=== PATIENT | male | born 1980 | race African-American/Black ===

== ENCOUNTER 2019-08-19 07:33 | Emergency (ER) | payer SELFPAY ==
[2019-08-19] MEDS ORDERED: IV NORMAL SALINE 1,000ML 1,000 ML IV ONE ×2 (07:45→09:15)
[2019-08-19] MEDS ORDERED: ZIPRASIDONE IM 20 MG VIAL. IM ONE (08:00)
--- NOTE | 2019-08-19 08:06 | RAD ---
PORTABLE CHEST 1V History: Altered mental status Comparison: None. Findings: 2 AP views of the chest are submitted. Evaluation of the right apex is limited due to overlying apparatus. There are low lung volumes, poor inspiration. Pericardial cardiac silhouette is likely within normal limits given technique and degree of inspiration. There is no lobar consolidation, pneumothorax, significant pleural fluid. Impression: 1. There is suboptimal inspiration, no lobar consolidation identified. Electronically signed by: Steve Koenig MD (08/19/2019 8:03 AM) [facility]
[2019-08-19 08:09] LABS: BASO % 0 % (0-3); EOS % 0 % (0-3); HEMATOCRIT 45.3 % (39.0-53.0); HEMOGLOBIN 13.8 g/dL (13.0-17.5); LYMPH # 1.6 x10^3/uL (1.0-4.8); LYMPH % 8 % (24-48); MEAN CORPUSCULAR HEMOGLOBIN 27 pg (25-35); MEAN CORPUSCULAR HGB CONC 30 g/dL (31-37); MEAN CORPUSCULAR VOLUME 88 fL (79-100); MONO # 1.5 x10^3/uL (0.0-1.1); MONO % 7 % (0-9); NEUT # 16.9 x10^3uL (1.8-7.7); NEUT % 85 % (31-73); PLATELET COUNT 209 x10^3/uL (140-400); RED BLOOD COUNT 5.14 x10^6/uL (4.30-5.70); RED CELL DISTRIBUTION WIDTH 16.1 % (11.5-14.5)
--- NOTE | 2019-08-19 08:10 | PHYS DOC ---
Past History Past Medical History: No Pertinent History Additional Past Medical Histor: Limited due to altered mental status Past Surgical History: No Surgical History Additional Past Surgical Histo: Limited due to altered mental status Smoking: Cigarettes Social History Narrative: Limited due to altered mental status Adult General Chief Complaint Chief Complaint: ALTERED MENTAL STATUS HPI HPI 38-year-old male presents via EMS with report of being found unresponsive by family members. EMS reports patient was slumped over a chair and was not breathing. EMS placed a nasal trumpet and used bag valve mask to supply supplemental O2 and gave patient 4 mg of Narcan. Patient became more responsive. EMS reports unknown what patient might have taken. No obvious substances noted by EMS. History of present illness limited due to altered mental status. Review of Systems Review of Systems Limited due to altered mental status Current Medications Current Medications Current Medications Medications (Trade) Dose Ordered Sig/Caro Start Time Stop Time Status Last Admin Dose Admin Sodium Chloride 1,000 ml @ 1,000 mls/hr 1X ONCE 08/19/19 07:45 08/19/19 08:44 08/19/19 07:58 1,000 MLS/HR Ziprasidone (Geodon Im) 10 mg 1X ONCE 08/19/19 08:00 08/19/19 08:09 DC 08/19/19 07:59 10 MG Allergies Allergies Allergies Coded Allergies Type Severity Reaction Last Updated Verified Unable to Assess 08/19/19 No Physical Exam Physical Exam Constitutional: Well developed, well nourished, agitated HENT: Normocephalic, atraumatic, oropharynx dry, TMs clear, no epistaxis noted, dried vomitus noted on face Eyes: Pupils 3mm and sluggish, EOMI, conjunctiva normal, no discharge Neck: Normal range of motion, no tenderness, supple, no meningeal signs Cardiovascular: Heart rate normal, regular rhythm Lungs & Thorax: Bilateral breath sounds clear to auscultation, no wheezing Abdomen: Soft, no tenderness, no distention/guarding/rebound tenderness Skin: Cool, dry, no erythema, no rash, left AC puncture wound noted Extremities: No tenderness, ROM intact, no edema Neurologic: Patient opens eyes and "I need help" and "I need water", patient confused and not answering questions or following commands, GCS 11 (eye2, verbal 4, motor 5), normal motor function, normal sensory function, no focal deficits noted Psychologic: Affect agitated, judgement abnormal EKG EKG @0857 NSR at 81bpm, NO ST elevation, QRS 96ms, QT/QTc 372/433ms, hyperacute t waves noted Radiology/Procedures Radiology/Procedures PROCEDURE: PORTABLE CHEST 1V PORTABLE CHEST 1V History: Altered mental status Comparison: None. Findings: 2 AP views of the chest are submitted. Evaluation of the right apex is limited due to overlying apparatus. There are low lung volumes, poor inspiration. Pericardial cardiac silhouette is likely within normal limits given technique and degree of inspiration. There is no lobar consolidation, pneumothorax, significant pleural fluid. Impression: 1. There is suboptimal inspiration, no lobar consolidation identified. Electronically signed by: Steve Koenig MD (08/19/2019 8:03 AM) [facility] Course & Med Decision Making Course & Med Decision Making Pertinent Labs and Imaging studies reviewed. (See chart for details) Patient presents via EMS after being found unresponsive with poor respirations. Patient improved with Narcan and protecting own airway. Patient continues to be poor historian however. Patient moves all extremities. Patient cold to touch and decreased temperature. Warm blankets and bear hugger applied. Patient agitated and not following commands. Difficulty evaluating patient and obtaining appropriate imaging. Given risk of patient hurting himself or staff decision to give 10 mg Geodon IM. IVF hydration. EKG with hyperacute t waves. Labs obtained and posted to chart. Hyperkalemia with elevated creatinine noted. Hyperkalemia rechecked and continued. Calcium gluconate given along with insulin/dextrose. Continuous albuterol also provided. CPK >46792. Troponin slightly elevated likely secondary to rhabdomyolysis. Aspirin suppository given. UDS positive for cocaine and THC. Chest x-ray without acute process. CT head/cervical spine without acute process. Patient requiring admission for further evaluation and treatment. Discussed with Dr. Capellan (hospitalist) who is in agreement with admission at [facility]. Transfer forms signed. Discussed findings and plan with family, who acknowledge understanding and agreement. Dragon Disclaimer Dragon Disclaimer This electronic medical record was generated, in whole or in part, using a voice recognition dictation system. Departure Departure: Impression: Primary Impression: Altered mental status Additional Impressions: Hyperkalemia Renal failure Cocaine abuse Marijuana abuse Elevated troponin Rhabdomyolysis Lactic acidosis Disposition: 05 TRANSFER OTHER ([facility]) Admitting Physician: Naeem Capellan Condition: GUARDED Referrals: PCP,UNKNOWN (PCP) Critical Care Time Critical care time was 30 minutes which includes time at bedside, spent in discussion of patient's care with specialists and/or family members, with interpretation of laboratory and/or radiological studies and is exclusive of procedures. Problem Qualifiers Primary Impression: Altered mental status Altered mental status type: unspecified Qualified Codes: R41.82 - Altered mental status, unspecified Additional Impressions: Renal failure Renal failure chronicity: unspecified chronicity Qualified Codes: N19 - Unspecified kidney failure Rhabdomyolysis Rhabdomyolysis type: non-traumatic Qualified Codes: M62.82 - Rhabdomyolysis BELLA CARRILLO DO Aug 19, 2019 08:10
[2019-08-19 08:18] LABS: ALBUMIN 4.1 g/dL (3.4-5.0); ALBUMIN/GLOBULIN RATIO 1.2 (1.0-1.7); CALCIUM 8.4 mg/dL (8.5-10.1); CREATININE 3.8 mg/dL (0.7-1.3); GFR 18.1; MAGNESIUM 2.7 mg/dL (1.8-2.4); TOTAL BILIRUBIN 0.2 mg/dL (0.2-1.0); TOTAL PROTEIN 7.6 g/dL (6.4-8.2)
[2019-08-19 08:19] LABS: ACETAMIN < 2.0 mcg/mL (10-30); ETHANOL < 10 mg/dL (0-10); SALIC 3.9 mg/dL (2.8-20.0)
[2019-08-19 08:22] LABS: POTASSIUM 7.8 mmol/L (3.5-5.1)
[2019-08-19 08:43] LABS: BARBITURATES NEG (NEG); BENZODIAZEPINES NEG (NEG); CANNABINOIDS POS (NEG); COCAINE POS (NEG); METHADONE NEG (NEG); OPIATES NEG (NEG); PHENCYCLIDINE NEG (NEG)
[2019-08-19 08:45] LABS: AMPHETAMINE/METHAMPHETAMINE NEG (NEG)
[2019-08-19] MEDS ORDERED: ALBUTEROL SULFATE 2.5 MG/3 ML NEBU. CONT NEB ONE (09:00)
[2019-08-19 09:09] LABS: BILIRUBIN,URINE NEG (NEG); CLARITY,URINE CLEAR; COLOR,URINE YELLOW; GLUCOSE,URINE 500 mg/dL (NEG)
[2019-08-19 09:10] LABS: AMORPHOUS SEDIMENT,UR PRESENT /HPF; BACTERIA,URINE FEW /HPF (0-FEW); NITRITE,URINE NEG (NEG); RBC,URINE 0 /HPF (0-2); SPERM,URINE PRESENT /HPF; UROBILINOGEN,URINE 0.2 mg/dL (0.2 mg/dL); WBC,URINE RARE /HPF (0-4)
[2019-08-19 09:18] LABS: % BANDS 7 % (0-9); % BASOS 0 % (0-3); % EOS 0 % (0-5); % LYMPHS 5 % (24-48); % MONOS 4 % (0-10); % SEGS 84 % (35-66); PLT ESTIMATE DECREASED (ADEQUATE)
[2019-08-19 09:19] LABS: TOXIC VACUOLATION PRESENT
[2019-08-19] MEDS ORDERED: DEXTROSE 50% 25 GM / 50ML DISP.SYRIN. IV ONE (09:30)
[2019-08-19] MEDS ORDERED: CALCIUM GLUCONATE 1,000 MG/10 ML VIAL IV ONE (09:30)
[2019-08-19] MEDS ORDERED: INSULIN REGULAR 100 UNIT/ML 3ML VIAL. IV ONE (09:30)
--- NOTE | 2019-08-19 10:03 | RAD ---
CT head and cervical spine without contrast History: Altered mental status Technique: Noncontrast CT imaging was performed of the head and cervical spine. Multiplanar reconstruction images are submitted. Exposure: One or more of the following individualized dose reduction techniques were utilized for this examination: 1. Automated exposure control 2. Adjustment of the mA and/or kV according to patient size 3. Use of iterative reconstruction technique. Head CT Comparison: None Findings: There is some motion degradation. No acute extra-axial or parenchymal hemorrhage is identified. There is no significant intra-axial mass effect, midline shift, or extra-axial fluid collection. The otto-white differentiation of the major vascular territories is preserved. The ventricles, sulci, and cisterns are within normal limits in size and configuration. The mastoid air cells and the visualized paranasal sinuses are aerated. There is no significant focal calvarial abnormality. Impression: 1. No acute intracranial abnormality is identified. Cervical spine CT Comparison: None Findings: No acute cervical spine fracture is identified. Vertebral body stature and AP alignment are within normal limits. Atlanto-axial distance is within normal limits. There is appropriate alignment of lateral masses of C1 relative to C2. Occipital condylar-C1 relationship is maintained. There is mild reversal of the lordotic curvature centered near C4-5. There is jaoq-op-hsvgsmmp degenerative disc disease C5-6, to a somewhat lesser degree at C4-5 and C6-7. There is mild to moderate cervical levoscoliosis. There is degree of atlantoaxial rotatory subluxation although probably positional for exam. Impression: 1. No acute cervical spine fracture is identified. 2. There is multilevel degenerative disc disease greatest at C5-6. 3. There is cervical levoscoliosis. There is degree of atlantoaxial rotatory subluxation although may be positional for exam. Electronically signed by: Steve Koenig MD (08/19/2019 10:01 AM) [facility]
[2019-08-19 10:17] VITALS: BP 132/80
[2019-08-19] MEDS ORDERED: ASPIRIN RECTAL 300 MG SUPP. PR ONE (11:30)
--- NOTE | 2019-08-19 19:45 | EKG ---
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
== END 2019-08-19 12:07 | disposition short-term general hospital (02) ==
LOC: ER 07:33
DX: N19 Unspecified kidney failure (principal); R41.82 Altered mental status, unspecified; E87.5 Hyperkalemia; F14.10 Cocaine abuse, uncomplicated; F12.10 Cannabis abuse, uncomplicated; M62.82 Rhabdomyolysis; E87.2 Acidosis; R79.89 Other specified abnormal findings of blood chemistry; F17.210 Nicotine dependence, cigarettes, uncomplicated
CPT/HCPCS: 36415; 70450; 71045; 72125; 80053; 80307; 80329; 81001; 82140; 82553; 82947; 83605; 83735; 84132; 84484; 85007; 85025; 85610; 85730; 93005; 94644; 96361; 96372; 96374; 96375; 99291; G0480; J0610; J1815; J3486; J7613; 94640; 82003; 99285-25; J7030

== ENCOUNTER 2019-09-06 09:26 | Inpatient (IN) | payer SELFPAY ==
[~2019-09-06] VITALS: Ht 190.5 cm; Wt 104.3 kg
[2019-09-06 10:10] LABS: BASO # 0.1 x10^3/uL (0.0-0.2); BASO % 1 % (0-3); EOS # 0.2 x10^3/uL (0.0-0.7); EOS % 2 % (0-3); HEMATOCRIT 26.2 % (39.0-53.0); HEMOGLOBIN 8.7 g/dL (13.0-17.5); LYMPH # 2.5 x10^3/uL (1.0-4.8); LYMPH % 32 % (24-48); MEAN CORPUSCULAR HEMOGLOBIN 28 pg (25-35); MEAN CORPUSCULAR HGB CONC 33 g/dL (31-37); MEAN CORPUSCULAR VOLUME 84 fL (79-100); MONO # 0.6 x10^3/uL (0.0-1.1); MONO % 8 % (0-9); NEUT # 4.6 x10^3uL (1.8-7.7); NEUT % 58 % (31-73); PLATELET COUNT 331 x10^3/uL (140-400); RED BLOOD COUNT 3.12 x10^6/uL (4.30-5.70)
[2019-09-06 10:25] LABS: ALBUMIN 3.9 g/dL (3.4-5.0); CALCIUM 9.1 mg/dL (8.5-10.1); CREATININE 3.9 mg/dL (0.7-1.3); DIRECT BILIRUBIN 0.2 mg/dL (0.0-0.2); GFR 21.2; MAGNESIUM 1.6 mg/dL (1.8-2.4); PHOSPHORUS 2.8 mg/dL (2.6-4.7); POTASSIUM 4.1 mmol/L (3.5-5.1); TOTAL BILIRUBIN 0.6 mg/dL (0.2-1.0); TOTAL PROTEIN 7.3 g/dL (6.4-8.2)
[2019-09-06 10:30] LABS: BILIRUBIN,URINE NEG (NEG); CLARITY,URINE CLEAR; COLOR,URINE YELLOW; GLUCOSE,URINE NEG (NEG)
[2019-09-06 10:31] LABS: HYALINE CASTS, URINE FEW /HPF; NITRITE,URINE NEG (NEG); SQUAMOUS EPITHELIAL CELL,UR FEW /LPF; UROBILINOGEN,URINE 0.2 mg/dL (0.2 mg/dL)
--- NOTE | 2019-09-06 10:32 | PHYS DOC ---
Past History Past Medical History: No Pertinent History Additional Past Medical Histor: Limited due to altered mental status Past Surgical History: No Surgical History Additional Past Surgical Histo: Limited due to altered mental status Smoking: Cigarettes Alcohol Use: None Drug Use: Cocaine, Marijuana Adult General Chief Complaint Chief Complaint: MULTIPLE COMPLAINTS [facility] HPI Patient is a 39-year-old male who presents with complaint of feeling bad for the last several days. Patient had been admitted over to [facility] a couple of weeks back and had been discharged home and instructed to establish care with the dialysis clinic but he states that he was not able to find one that was within reasonable distance of where he is living. He states that he has numbness in his right leg as well as some pain in the right leg and numbness around his scrotal sac but states that this has been ongoing since when he had been admitted to [facility]. He denies any loss of bowel or bladder control. He does indicate that he is still making urine. He rates the pain in his leg as moderate. He states that it has a sensation like it swelling. He denies any chest pain or shortness of breath. He also denies any abdominal pain and has had no vomiting or diarrhea. He does not believe that he is been running a fever.[] Review of Systems Review of Systems Constitutional: Denies fever or chills [] Respiratory: Denies cough or shortness of breath [] Cardiovascular: No additional information not addressed in [facility] [] GI: Denies abdominal pain, nausea, vomiting or diarrhea [] Musculoskeletal: Complains of right leg numbness and pain [] Integument: Denies rash or skin lesions [] Neurologic: Denies headache. Complains of right leg and groin numbness [] All other systems were reviewed and found to be within normal limits, except as documented in this note. Allergies Allergies Allergies Coded Allergies Type Severity Reaction Last Updated Verified Unable to Assess 08/19/19 No Physical Exam Physical Exam Constitutional: Well developed, well nourished, no acute distress. [] HENT: Normocephalic, atraumatic, bilateral external ears normal, oropharynx moist, no oral exudates, nose normal. [] Eyes: PERRLA, EOMI, conjunctiva normal, no discharge. [] Neck: Normal range of motion, no tenderness, supple. [] Cardiovascular: Regular rate and rhythm[] Lungs & Thorax: Bilateral breath sounds clear to auscultation [] Abdomen: Bowel sounds normal, soft, no tenderness. [] Skin: Warm, dry, no erythema, no rash. [] Extremities: No cyanosis, no clubbing, ROM intact. [] Neurologic: Alert and oriented X 3. Altered sensation is noted throughout the right lower extremity with dysesthesia. [] Current Patient Data Lab Results Laboratory Tests Test 09/06/19 09:55 White Blood Count 8.0 x10^3/uL (4.0-11.0) Red Blood Count 3.12 x10^6/uL (4.30-5.70) L Hemoglobin 8.7 g/dL (13.0-17.5) L Hematocrit 26.2 % (39.0-53.0) L Mean Corpuscular Volume 84 fL (79-100) Mean Corpuscular Hemoglobin 28 pg (25-35) Mean Corpuscular Hemoglobin Concent 33 g/dL (31-37) Red Cell Distribution Width 16.0 % (11.5-14.5) H Platelet Count 331 x10^3/uL (140-400) Neutrophils (%) (Auto) 58 % (31-73) Lymphocytes (%) (Auto) 32 % (24-48) Monocytes (%) (Auto) 8 % (0-9) Eosinophils (%) (Auto) 2 % (0-3) Basophils (%) (Auto) 1 % (0-3) Neutrophils # (Auto) 4.6 x10^3uL (1.8-7.7) Lymphocytes # (Auto) 2.5 x10^3/uL (1.0-4.8) Monocytes # (Auto) 0.6 x10^3/uL (0.0-1.1) Eosinophils # (Auto) 0.2 x10^3/uL (0.0-0.7) Basophils # (Auto) 0.1 x10^3/uL (0.0-0.2) Ammonia < 10 mcmol/L (11-34) L EKG EKG [] Radiology/Procedures Radiology/Procedures [] Impressions: PROCEDURE: PORTABLE CHEST 1V PORTABLE CHEST 1V History: Weakness Comparison: August 19, 2019 Findings: Single view of the chest is submitted. There is no infiltrate, pneumothorax, or effusion. The pericardial cardiac silhouette is within normal limits in size. Impression: 1. There is no radiographic evidence of acute cardiopulmonary disease. Electronically signed by: Steve Koenig MD (09/06/2019 11:20 AM) [facility] Course & Med Decision Making Course & Med Decision Making Pertinent Labs and Imaging studies reviewed. (See chart for details) [] Dragon Disclaimer Dragon Disclaimer This electronic medical record was generated, in whole or in part, using a voice recognition dictation system. Departure Departure: Impression: Primary Impression: Hikpt-ov-uiqdyzn kidney injury Additional Impression: Acute anemia Disposition: 09 ADMITTED INPATIENT Admitting Physician: Naeem Capellan Condition: IMPROVED Referrals: PCP,NO (PCP) Problem Qualifiers Primary Impression: Ylicl-tk-ivnwxad kidney injury Acute renal failure type: unspecified Chronic kidney disease stage: unspecified stage Qualified Codes: N17.9 - Acute kidney failure, unspecified; N18.9 - Chronic kidney disease, unspecified COLE TO Jr. DO Sep 06, 2019 10:31
[2019-09-06 10:33] LABS: BACTERIA,URINE 0 /HPF (0-FEW)
[2019-09-06] MEDS ORDERED: IV NORMAL SALINE 1,000ML 1,000 ML IV ONE (10:45)
[2019-09-06 10:52] LABS: BARBITURATES NEG (NEG); BENZODIAZEPINES NEG (NEG); CANNABINOIDS NEG (NEG); COCAINE NEG (NEG); METHADONE NEG (NEG); OPIATES NEG (NEG); PHENCYCLIDINE NEG (NEG)
[2019-09-06 10:53] LABS: AMPHETAMINE/METHAMPHETAMINE NEG (NEG)
--- NOTE | 2019-09-06 11:24 | RAD ---
PORTABLE CHEST 1V History: Weakness Comparison: August 19, 2019 Findings: Single view of the chest is submitted. There is no infiltrate, pneumothorax, or effusion. The pericardial cardiac silhouette is within normal limits in size. Impression: 1. There is no radiographic evidence of acute cardiopulmonary disease. Electronically signed by: Steve Koenig MD (09/06/2019 11:20 AM) [id number]
[2019-09-06] MEDS ORDERED: IV NORMAL SALINE 1,000ML 1,000 ML IV SCH (12:30)
[2019-09-06 13:34] VITALS: BP 147/97
--- NOTE | 2019-09-06 15:41 | EKG ---
[address] [address] Test Date: 2019-09-06 Test Time: 10:16:51 Pat Name: LYNDSAY PASCUAL Department: Room: Gender: M Certified Family Mediator: : 1979-11-02 Requested By: COLE TO Order Number: [id number] Reading MD: Measurements Intervals [place] Rate: 70 P: 52 PA: 160 QRS: 31 QRSD: 84 T: 34 QT: 368 QTc: 400 Interpretive Statements SINUS RHYTHM NO SPECIFIC ECG ABNORMALITIES RI6.01 No previous ECG available for comparison
[2019-09-06] MEDS ORDERED: GABA100C81 PO (17:35)
--- NOTE | 2019-09-06 18:27 | SSS ---
ADMIT DATE: HISTORY OF PRESENT ILLNESS: The patient is a 39-year-old -Filipino male patient, who came to the Emergency Room with a complaint that he is feeling bad for the last several days. Specifically, he was complaining of a tingling and numbness in his right upper and right lower extremity, for which, he was actually evaluated at [facility]. He has an MRI of the brain and also MRI of the cervical, thoracic, and lumbar spine. He was seen by the neurologist and no abnormality could be found at that time and unfortunately, at that time, he had left against the medical advice. He insisted to remove his temporary hemodialysis catheter and left against medical advice and has sensed pain apparently at home. Surprisingly, his kidney function stabilized and his lab work was really unrevealing except that he has obviously probably an underlying chronic kidney disease. PAST MEDICAL HISTORY: Significant for rhabdomyolysis and acute kidney injury, probably an ycvfh-ym-zddioml kidney disease. In fact, when he was admitted to [facility], her potassium was 8.2, lactic acid was high at 11.4, and his CK was 72,000. He has at that time a temporary hemodialysis cath tunneled under skin to the right internal jugular vein. He was dialyzed the few times. In fact, he was admitted on 08/19/2019 and left against the medical advice on 08/25/2019 after multiple attempts by Dr. Casillas, the operator control room, the interventional radiologist, the neurologist, and myself to convince him otherwise. PAST SURGICAL HISTORY: Significant for open reduction and internal fixation of the right ankle fracture. ALLERGIES: He has no known drug allergies. MEDICATIONS: He is currently on no medication. REVIEW OF SYSTEMS: The patient denied any. FAMILY HISTORY: Unremarkable. SOCIAL HISTORY: He is not and has no children. His toxic screen on arrival initially was positive for cocaine and cannabinoids, this was on his admission initially when he was evaluated, this Emergency Room on 08/19/2019. REVIEW OF SYSTEMS: The patient's main complaint was tingling and numbness in his right upper and right lower extremity. PHYSICAL EXAMINATION: GENERAL: On examining him, he looked well and was clearly in no apparent respiratory distress. No pallor, jaundice, cyanosis, or thyromegaly. No jugular venous distention. No limb edema. VITAL SIGNS: His heart rate was 76, blood pressure was 147/97, temperature was 98.1, respiratory rate was 18, and oxygen saturation was 99%. HEAD, EYES, EARS, NOSE, AND THROAT: Showed normocephalic and atraumatic. NECK: Supple. HEART: Showed normal first and second heart sounds. No gallop or murmur. CHEST: Clear to auscultation. No crepitation or rhonchi. ABDOMEN: Distended, soft, and nontender. No guarding or rigidity. No organomegaly. All hernial orifice intact. Bowel sounds are normal. NEUROLOGIC: He was awake, alert, and responding appropriately. All cranial nerves are intact. EXTREMITIES: He moves extremities without difficulty and ambulates without assistance or assistive devices. LABORATORY WORK: On admission show that the white cell count is of 8000, hemoglobin 8.7, hematocrit 26, MCV 84, and platelet count 331,000. His chemistry showed that his serum sodium was 139, potassium 4.1, chloride 103, bicarbonate 23, anion gap of 13, BUN 44, and creatinine 3.9. Estimated GFR was 21 mL per minute. His glucose was 180. Calcium was 9.1, phosphorus 2.8, and magnesium was 1.6. Total bilirubin, AST, ALT, and alkaline phosphatase were normal. Total protein was 7.3 and albumin was 3.9. Urinalysis was essentially unremarkable. There was moderate amount of blood, but negative for everything else. There was only 6-10 rbc's, 1-4 wbc's, and very few bacteria. His toxic screen was negative. ASSESSMENT AND PLAN: The patient was admitted and was continued on IV fluid; however, on questioning him further, the reason for his visit was to get a prescription for Neurontin for his painful peripheral neuropathy and therefore, the patient was given a prescription for Neurontin 100 mg 3 times a day. He was also given a release to go back to work and was given a note to go back to work on 09/11/2019. FINAL DISCHARGE DIAGNOSES: Chronic kidney disease, normochromic normocytic anemia, and painful peripheral neuropathy, affecting mostly his right upper and right lower extremity without any finding on extensive investigation done at the [facility]. VERONICA DOBBINS MD DR: DAVIDA/tommy JOB#: [id number] / [id number]
== END 2019-09-06 19:19 | disposition home or self-care (01) | DRG 684 ==
LOC: ER 09:26 → 1 SOUTH 13:05
PROVIDERS: ADMIT Internal Medicine; ATTEND Internal Medicine
DX: N17.9 Acute kidney failure, unspecified (principal); D64.9 Anemia, unspecified; G62.9 Polyneuropathy, unspecified; N18.9 Chronic kidney disease, unspecified; Z79.899 Other long term (current) drug therapy; Z87.891 Personal history of nicotine dependence; F14.90 Cocaine use, unspecified, uncomplicated
CPT/HCPCS: 36415; 71045; 80048; 80076; 80307; 81001; 82140; 82550; 83605; 83735; 84100; 84484; 85025; 93005; 96360; 99285-25; J7030